=== PATIENT | female | born 1940 | race Caucasian/White ===

== ENCOUNTER → 2017-09-13 16:57 | Outpatient (CLI) | payer MEDICARE, BC | END | disposition home or self-care (01) | LOC: D.MAMMO 13:45 | DX: Z12.31 Encounter for screening mammogram for malignant neoplasm of breast (principal) ==

== ENCOUNTER → 2019-05-07 08:05 | Outpatient (CLI) | payer MEDICARE, BC ==
[2019-05-07 10:13] LABS: ERYTHROCYTE SEDIMENTATION RATE 20 mm/hr (0-30)
[2019-05-08 11:10] LABS: ANA REFLEX - DIRECT Negative (Negative)
[2019-05-09 17:08] LABS: ANGIOTENSIN CONVERTING ENZYME 60 U/L (14-82)
[2019-05-12 16:08] LABS: ANCA - ANTIMYELOPEROXIDASE <9.0 U/mL (0.0-9.0); ANCA - ANTIPROTEINASE 3 <3.5 U/mL (0.0-3.5); ANCA - ATYPICAL <1:20 titer (Neg:<1:20); ANCA - CYTOPLASMIC <1:20 titer (Neg:<1:20); ANCA - PERINUCLEAR <1:20 titer (Neg:<1:20)
== END | disposition home or self-care (01) ==
LOC: D.RT 08:05 → D.LAB 05-19 15:45 → D.RT 05-19 16:00
PROVIDERS: ATTEND Internal Medicine Pulmonary Disease
DX: J95.851 Ventilator associated pneumonia (principal)

== ENCOUNTER → 2019-08-31 20:31 | Outpatient (CLI) | payer MEDICARE, BC | END | disposition home or self-care (01) | LOC: D.MAMMO 11:45 | PROVIDERS: ATTEND General Practice | DX: Z12.31 Encounter for screening mammogram for malignant neoplasm of breast (principal) ==